=== PATIENT | female | born 1980 | race Caucasian/White ===

== ENCOUNTER 2016-08-02 18:36 | Emergency (ER) | payer BC ==
--- NOTE | ~2016-08-02 | ER ---
PAT[facility] AGE: 36 Y [address] ROOM: [place] [address] LOCATION: ED ADMIT DATE: 08/02/2016 ER/Outpatient Report DISCHARGE DATE: 08/02/2016 FAMILY PHYSICIAN: PHYSICIAN, NO ATTENDING PHYSICIAN: Erendira Acosta HISTORY OF PRESENT ILLNESS: This is a 36-year-old female, who presents today from [facility] with chief complaint of cold symptoms, sinus congestion, left ear pain, feeling feverish, feeling chills, feeling body aches, dizziness ongoing for a week. She was given prednisone and doxycycline. She stopped taking the prednisone after she developed abdominal pain and she says that she has not really been feeling better at all. Denies any chest pain, shortness of breath, but does report some nausea, mild headache. No diarrhea, no back pain, no problems urinating. Her is also at bedside. She says that she has not been right in a week. She did go to [facility] today where apparently they did blood work. I received a call from the DAMPENER OPERATOR, Ayse Solo, who is telling me that the blood work was pretty unremarkable, but one was concerned about right lower quadrant pain. They had done a pelvic exam in the office and it was as per them normal. The patient says that she just has abdominal pain. It is on both sides and suprapubic area exceptionally. PAST MEDICAL HISTORY: Depression. PAST SURGICAL HISTORY: x3 and abdominoplasty. SOCIAL HISTORY: She does not smoke, drink, or use any drugs. MEDICATIONS: Please see med list. ALLERGIES: NONE. ROS: Reviewed by me and negative with the exception of those discussed in the HPI. PHYSICAL EXAMINATION: VITAL SIGNS: The patient is 5 feet 6 inches; she weighs 65 kilos; her heart rate is 93; respiratory rate 18; temperature is 100.2, tympanic; saturating 100% on room air. GENERAL: The patient does not look acutely ill. She is nontoxic. She is [facility] AGE: 36 Y [address] ROOM: [place] [address] LOCATION: ED ADMIT DATE: 08/02/2016 ER/Outpatient Report DISCHARGE DATE: 08/02/2016 FAMILY PHYSICIAN: PHYSICIAN, NO ATTENDING PHYSICIAN: Erendira Acosta speaking to me in full sentences. She has somewhat of a flat affect. HEENT: Pupils are equal and reactive to light. She has no sinus pressure or tenderness. Bilateral ears are clear. The left ear might have some more fluid than the other behind it, but it is not dull. It is not erythematous and there are no exudates. She has no sinus tenderness. Her throat is clear. She has no cervical lymphadenopathy. HEART: Regular rate and rhythm at this time. Heart rate is about 90 beats per minute. LUNGS: Her lung sounds sound clear. She has no labored breathing, tachypnea, or accessory muscle use. ABDOMEN: She has very mild suprapubic tenderness. Some mild right lower quadrant tenderness. She has no rebound or guarding. Normal inspection. No CVA tenderness bilaterally. SKIN: Warm, dry, and intact. She has no rash noted anywhere. EMERGENCY ROOM COURSE: The patient was given an IV and we gave her some fluids as well as some Zofran and Toradol after which she said she felt better. We checked UA and U- . She is not . UA was positive for some ketones, but otherwise unremarkable. CBC, CMS, CRP, lactic were also done. CBC shows a white count of 8.4, an H and H of 12.5/39.1, platelets are 251. She does have some bandemia at 10% though, but no other findings on the CBC. Her lactic is 1.2. Her CRP was less than 0.29. Her sodium was 139, potassium 4, chloride 104, CO2 28, anion gap is 11, BUN is 17, creatinine is 0.9. GFR is greater than 60. AST and ALT are within normal limits. Bilirubin 1.4. Alkaline phosphatase 53. We did a CT of abdomen and pelvis with IV contrast. I received a call from Dr. Mcneil's reading. She has some mild constipation, but no other findings on exam. Negative for appendicitis or any other abnormality. I went back to reassess the patient. She says she feels better. We will give her a script for some Zofran and have her follow up. I think this is all sort of a viral syndrome and she has no alarming findings on physical exam or history of other lab work. IMPRESSION: Left ear pain, abdominal pain, myalgias. MD NACHO SELBY/josesito /[id number] d: 08/03/16612 t: 08/03/16 1823, OUTPATIENT REPORT
[2016-08-02 19:25] LABS: HEMATOCRIT 39.1 % (33.0-46.0); HEMOGLOBIN 12.5 g/dL (11.0-15.0); MCH 28.9 pg (27.0-34.0); MCV 90.3 fl (83.0-98.0); MPV 9.5 fl (9.4-12.4); PLATELET COUNT 251 K/uL (150-450); RDW-CV 11.9 % (11.9-14.6); WBC 8.4 K/uL (4.0-11.0)
[2016-08-02 19:30] LABS: RBC 4.33 M/uL (3.50-5.50)
[2016-08-02 19:35] LABS: BILIRUBIN URINE NEGATIVE (NEGATIVE); BLOOD URINE NEGATIVE /UL (NEGATIVE); COLOR URINE YELLOW (YELLOW); GLUCOSE URINE NEGATIVE (NEGATIVE); KETONE URINE 5 mg/dL (NEGATIVE); LEUKOCYTES URINE 25 /UL (NEGATIVE); NITRITE URINE NEGATIVE (NEGATIVE); PROTEIN URINE NEGATIVE (NEGATIVE); TURBIDITY URINE CLEAR (CLEAR); UROBILINOGEN URINE NORMAL (NORMAL)
[2016-08-02 19:44] LABS: ALBUMIN 4.3 gm/dL (3.5-5.0); ALK PHOS 53 IU/L (33-138); ALT 23 IU/L (12-78); AST 16 IU/L (10-40); BLOOD UREA NITROGEN 17 mg/dL (6-24); CHLORIDE 104 mMol/L (96-110); CO2 28 mMol/L (22-32); CREATININE 0.9 mg/dL (0.5-1.1); ESTIMATED GFR (MDRD EQUATION) > 60; SODIUM 139 mMol/L (135-145); TOTAL BILIRUBIN 1.4 mg/dL (0.0-1.5); TOTAL PROTEIN 7.8 g/dL (6.0-8.4)
[2016-08-02 19:52] LABS: BACTERIA URINE NEGATIVE (NEGATIVE); RBC URINE NEGATIVE #/HPF (NEGATIVE); WBC URINE 0-2 #/HPF (NEGATIVE)
[2016-08-02 20:02] LABS: ABSOLUTE NEUTROPHIL CT (ANC) 7.2 K/uL (1.8-7.8); BANDED NEUTROPHIL # 0.8 K/uL (0.0-0.1); BANDED NEUTROPHILS % 10 %; LYMPHOCYTE # 0.5 K/uL (0.8-4.0); LYMPHOCYTE % 6 %; MONOCYTE # 0.5 K/uL (0.0-1.0); SEGMENTED NEUTROPHIL # 6.4 K/uL (1.8-7.8); SEGMENTED NEUTROPHIL % 76 %
== END 2016-08-02 21:02 | disposition disaster alternative care site (69) ==
LOC: GMED 18:36
PROVIDERS: Emergency Medicine
DX: H92.02 Otalgia, left ear (principal); R10.31 Right lower quadrant pain; M79.1 Myalgia; F32.9 Major depressive disorder, single episode, unspecified; Z98.890 Other specified postprocedural states
CPT/HCPCS: J1885; J7030; Q9967